=== PATIENT | female | born 1990 ===

== ENCOUNTER 2022-12-23 20:36 | Emergency (ER) | payer OTHER ==
[2022-12-23] MEDS ORDERED: Ibuprofen 600 MG Tab PO ONE (20:51)
[2022-12-23] MEDS ORDERED: Cyclobenzaprine 10 MG Tab PO ONE (20:53)
== END 2022-12-23 21:53 | disposition home or self-care (01) ==
LOC: EDBD → DL.ED 20:36 → MERGE 20:36 → DL.ED 21:53
DX: S20.211A Contusion of right front wall of thorax, initial encounter (principal); S30.0XXA Contusion of lower back and pelvis, initial encounter; S20.229A Contusion of unspecified back wall of thorax, initial encounter; Z88.6 Allergy status to analgesic agent; W01.0XXA Fall on same level from slipping, tripping and stumbling without subsequent striking against object, initial encounter
CPT/HCPCS: 71101-RT; 72072; 72100; 99283; A9270-GY